=== PATIENT | female | born 1975 | race Caucasian/White ===

== ENCOUNTER → 2020-11-26 | Outpatient (CLI) | payer OTHER ==
[~2020-11-26] MED LIST: ADIPEX-P37.5 M1 PO; COLACE 100MG C100 MG PO; CYCLOBENZAPRINE5 MG PO; ESTRACE1 MG PO; HYDROCODON-ACE1 EAC6 PO; IBUPROFEN600 MG PO; MACROBID 100 M100 MG PO; NORCO 5-325 TA1 EACH PO; RESTASIS1 EACH OP; RIZATRIPTAN10 MG PO
[2020-11-26 11:13] LABS: HEMOGLOBIN 12.3 gm/dl (12.3-15.3); RED BLOOD COUNT 3.98 M/UL (4.00-5.10); WHITE BLOOD COUNT 5.2 K/UL (4.5-11.0)
== END ==
LOC: OPSV2 10:09
PROVIDERS: Obstetrics & Gynecology
DX: Z01.812 Encounter for preprocedural laboratory examination (principal); N92.0 Excessive and frequent menstruation with regular cycle
CPT/HCPCS: 36415; 81001; 85025; 87077; 87086; 87186

== ENCOUNTER 2020-12-06 07:21 | Day surgery (SDC) | payer OTHER ==
[~2020-12-06] VITALS: Ht 165.1 cm; Wt 74.4 kg
[~2020-12-06 07:21] MED LIST changes: -ADIPEX-P37.5 M1 PO; -COLACE 100MG C100 MG PO; -ESTRACE1 MG PO; -HYDROCODON-ACE1 EAC6 PO; -IBUPROFEN600 MG PO; -MACROBID 100 M100 MG PO
[2020-12-06] MEDS ORDERED: ADIPEX-P37.5 M1 PO (08:02)
[2020-12-06] MEDS ORDERED: IBUPROFEN600 MG PO (09:02)
[2020-12-06] MEDS ORDERED: HYDROCODON-ACE1 EAC6 PO (09:02)
[2020-12-06] MEDS ORDERED: ESTRACE1 MG PO (09:02)
[2020-12-06] MEDS ORDERED: COLACE 100MG C100 MG PO (09:02)
[2020-12-06] MEDS ORDERED: MACROBID 100 M100 MG PO (09:02)
--- NOTE | 2020-12-06 17:07 | NUR ---
1640 PT UP TO CHAIR, STAND BY ASSIST, CALL LIGHT IN REACH
--- NOTE | 2020-12-06 17:20 | NUR ---
PT C/O REQUESTS TO GO BACK TO BED, ASSISTED TO BED
== END 2020-12-07 12:10 | disposition home or self-care (01) ==
LOC: OR 07:21 → OB 11:23 → OR 12-07 12:10
PROVIDERS: Obstetrics & Gynecology
DX: D25.9 Leiomyoma of uterus, unspecified (principal); N80.1 Endometriosis of ovary; N80.0 Endometriosis of uterus; N72 Inflammatory disease of cervix uteri; N70.11 Chronic salpingitis; Z79.899 Other long term (current) drug therapy
CPT/HCPCS: 36415; 85014; 85018; J0690; J1100; J1885; J2001; J2250; J2370; J2405; J2550; J2704; J2710; J2795; J3010; J7120